=== PATIENT | female | born 1955 | race Caucasian/White ===

== ENCOUNTER → 2016-07-26 | Outpatient (CLI) | payer OTHER ==
[~2016-07-26] MED LIST: HYDR-1189 PO; ONDA4TAB22 PO
== END | disposition home or self-care (01) ==
LOC: SCA 10:13
PROVIDERS: ATTEND Internal Medicine
DX: I34.0 Nonrheumatic mitral (valve) insufficiency (principal); I35.0 Nonrheumatic aortic (valve) stenosis; R01.1 Cardiac murmur, unspecified
CPT/HCPCS: 93005; 93306

== ENCOUNTER 2016-07-27 06:15 | Outpatient (CLI) | payer OTHER ==
[2016-07-27 07:26] LABS: BASOPHILS # (AUTO) 0.1 K/uL (0.0-0.2); BASOPHILS % (AUTO) 0.6 % (0.0-2.0); EOSINOPHILS # (AUTO) 0.4 K/uL (0.0-0.4); EOSINOPHILS % (AUTO) 4.6 % (0.0-4.0); HEMATOCRIT 43.4 % (36-48); HEMOGLOBIN 14.1 g/dL (12.0-16.0); LYMPHOCYTES # (AUTO) 2.7 K/uL (1.0-5.5); LYMPHOCYTES % (AUTO) 30.4 % (20.5-51.5); MEAN CORPUSCULAR HEMOGLOBIN 30 pg (27-31); MEAN CORPUSCULAR HGB CONC 33 % (32-36); MEAN CORPUSCULAR VOLUME 94 fL (79.0-98.0); MONOCYTES # (AUTO) 0.5 K/uL (0.0-1.0); MONOCYTES % (AUTO) 5.1 % (1.7-9.3); NEUTROPHILS # (AUTO) 5.2 K/uL (1.8-7.7); NEUTROPHILS % (AUTO) 59.3 % (40.0-70.0); PLATELET COUNT (AUTO) 372 K/uL (130-430); RED BLOOD CELL COUNT(AUTO) 4.64 MIL/uL (4.2-6.2); RED CELL DISTRIBUTION WIDTH 13.2 % (9.0-15.0); WHITE BLOOD COUNT (AUTO) 8.9 K/uL (4.8-10.8)
[2016-07-27 07:47] LABS: BILIRUBIN,URINE NEGATIVE (NEGATIVE); BLOOD, URINE NEGATIVE (NEGATIVE); CLARITY/URINE CLEAR (CLEAR); COLOR,URINE YELLOW (YELLOW); GLUCOSE,URINE NEGATIVE (NEGATIVE); KETONES,URINE NEGATIVE (NEGATIVE); LEUKOCYTE ESTERASE ,URINE NEGATIVE (NEGATIVE); NITRITE, URINE NEGATIVE (NEGATIVE); PH,URINE 6.5 (5.0-8.0); PROTEIN URINE NEGATIVE (NEGATIVE); UROBILINOGEN,URINE 0.2 (0.2-1.0)
[2016-07-27 08:02] LABS: ALANINE AMINOTRANSFERASE 24 U/L (12-78); ALBUMIN 3.9 g/dL (3.4-4.8); ANION GAP 7 (5-15); ASPARTATE AMINOTRANSFERASE 18 U/L (10-37); CALCIUM 9.3 mg/dL (8.4-11.0); CHLORIDE 104 mmol/L (98-107); CHOLESTEROL 233 mg/dL (<200); CREATININE 0.71 mg/dL (0.55-1.30); GLUCOSE 94 mg/dL (70-99); HDL CHOLESTEROL 58 mg/dL (>55); LDL CHOLESTEROL 148 mg/dL (<100); POTASSIUM 4.3 mmol/L (3.5-5.1); SODIUM SERUM 139 mmol/L (136-145); THYROID STIMULATING HORMONE 1.13 uIu/mL (0.34-4.82); TOTAL BILIRUBIN 0.3 mg/dL (0.0-1.0); TRIGLYCERIDES 135 mg/dL (30-150); UREA NITROGEN, BLOOD 11 mg/dL (8-21)
[2016-07-27 08:03] LABS: C-REACTIVE PROTEIN QUANT < 0.2 mg/dL (0-0.5); GFR AFRICAN AMERICAN 108 mL/min (>90)
[2016-07-27 08:06] LABS: ERYTHROCYTE SEDIMENTATION RATE 13 MM/HR (0-20)
== END 2016-07-27 19:16 | disposition home or self-care (01) ==
LOC: SLB 06:15
PROVIDERS: ATTEND Internal Medicine
DX: Z00.00 Encounter for general adult medical examination without abnormal findings (principal)
CPT/HCPCS: 36415; 80053; 80061; 81003; 82306; 82607; 82746; 83036; 83735-TC; 84443-TC; 85025; 85651-TC; 86140

== ENCOUNTER 2016-07-31 08:15 | Outpatient (CLI) | payer OTHER ==
[2016-07-31] MEDS ORDERED: GADOPENTETATE DIMEGLUMINE 15 ML VIAL IV ONE (08:32)
== END 2016-07-31 18:20 | disposition home or self-care (01) ==
LOC: SMA 08:15
PROVIDERS: ATTEND Internal Medicine
DX: Z12.31 Encounter for screening mammogram for malignant neoplasm of breast (principal); R90.82 White matter disease, unspecified; M48.54XA Collapsed vertebra, not elsewhere classified, thoracic region, initial encounter for fracture
CPT/HCPCS: 70553; 72072; A9579; G0202